=== PATIENT | female | born 1985 | race Caucasian/White ===

== ENCOUNTER 2017-06-07 18:19 | Emergency (ER) | payer BC ==
--- NOTE | 2017-06-07 18:40 | UC ---
Laceration HPI - HPI Summary HPI Summary: 32 YEAR OLD FEMALE PRESENTS WITH COMPLAINS OF LEFT KNEE LACERATION . I AM CONCERNED ABOUT A IT TENDON TEAR AND WILL SEND HER TO THE ER. - History Of Current Complaint Stated Complaint: LEFT KNEE LAC Time Seen by Provider: 06/07/17 18:40 Hx Obtained From: Patient Hx Last Menstrual Period: 11/27/12 Onset/Duration: Sudden Onset, Lasting Hours Severity: Severe Pain Scale Used: 0-10 Numeric - 5 Aggravating Factors: Movement - Allergies/Home Medications Allergies/Adverse Reactions: Allergies Allergy/AdvReac Type Severity Reaction Status Date / Time No Known Allergies Allergy Verified 06/07/17 18:50 Home Medications: Home Medications Cyanocobalamin [B-12] 1,000 mcg PO DAILY 06/07/17 [History Confirmed 06/07/17] Lactobacillus [Probiotic] 1 cap PO DAILY 06/07/17 [History Confirmed 06/07/17] Stomach Med 1 tab PO TID PRN 06/07/17 [History Confirmed 06/07/17] PMH/Surg Hx/FS Hx/Imm Hx Previously Healthy: Yes - Surgical History Surgical History: Yes Surgery Procedure, Year, and Place: Sinus surgery, x 1 in 2009 - Family History Known Family History: Positive: None - Social History Substance Use Type: None Review of Systems Constitutional: Negative Skin: Other - LEFT KNEE LACERATION Eyes: Negative ENT: Negative Respiratory: Negative Cardiovascular: Negative Gastrointestinal: Negative Genitourinary: Negative Motor: Negative Neurovascular: Negative Musculoskeletal: Negative Neurological: Negative Psychological: Negative All Other Systems Reviewed And Are Negative: Yes Physical Exam Triage Information Reviewed: Yes Eye Exam: Normal ENT Exam: Normal Dental Exam: Normal Neck exam: Normal Neck: Positive: 1 Respiratory Exam: Normal Cardiovascular Exam: Normal Abdominal Exam: Normal Musculoskeletal Exam: Normal Neurological Exam: Normal Psychological Exam: Normal Skin Exam: Normal Laceration Course/Dx - Differential Dx - Laceration/Wound Provider Diagnoses: LEFT KNEE LACERATION Discharge - Discharge Plan Condition: Stable Disposition: HOME Patient Education Materials: Laceration (ED) Referrals: Molly Brewster MD [Medical Doctor] - Additional Instructions: PLEASE GO TO ER TO ASSESS LEFT TENDON TEAR WITH LACERATION.
[2017-06-07 18:50] VITALS: BP 112/69
== END 2017-06-07 19:06 | disposition home or self-care (01) ==
LOC: UCCORT 18:19
DX: S81.012A Laceration without foreign body, left knee, initial encounter (principal)
CPT/HCPCS: 99211; G0463